=== PATIENT | male | born 1950 | race Caucasian/White ===

== ENCOUNTER 2023-03-19 10:09 | Emergency (ER) | payer BC, MEDICARE, OTHER ==
[2023-03-19] MEDS ORDERED: ClonazePAM 0.5 MG Tab PO PRN (11:30)
== END 2023-03-19 11:54 | disposition home or self-care (01) ==
LOC: KA.ED 10:09
DX: G47.00 Insomnia, unspecified (principal); Z91.048 Other nonmedicinal substance allergy status; Z88.6 Allergy status to analgesic agent; Z88.8 Allergy status to other drugs, medicaments and biological substances; Z79.899 Other long term (current) drug therapy
CPT/HCPCS: 99283; A9270-GY